=== PATIENT | male | born 1965 | race Caucasian/White ===

== ENCOUNTER 2018-06-30 17:04 | Emergency (ER) | payer BC ==
--- NOTE | 2018-06-30 17:24 | PDOC ---
Rapid Medical Evaluation Time Seen by Provider: 06/30/18 17:19 Medical Evaluation: 06/30/18 17:19 Pt c/o: glucose 475, c/o fatigue, takes pills daily, denies recent sickness/ change in medication pt on brief exam: afebrile, lcta, bp 180/100 ( on htn meds) pt ordered for: cbc, comp, acetone, ekg, ua, bgm, iv Pt to proceed to the ED 06/30/18 17:23 Discharge Disposition - Diagnosis Elevated glucose - Referrals - Patient Instructions - Post Discharge Activity
[2018-06-30 17:25] VITALS: BP 188/100; PULSE 84; TEMP 98.2; BMI 30.8
[2018-06-30 18:17] LABS: BASO % 1.2 % (0-2.0); EOS % 2.8 % (0-4.5); LYMPH % 31.5 % (8-40); MCH 30.6 pg (25.7-33.7); MCHC 36.7 g/dl (32.0-35.9); MEAN CELL VOLUME 83.4 fl (80-96); MEAN PLT VOLUME 8.7 fl (7.5-11.1); MONO % 8.1 % (3.8-10.2); NEUT % 56.4 % (42.8-82.8); PLATELET COUNT 166 K/MM3 (134-434); RBC 4.94 M/mm3 (4.00-5.60); RDW 12.8 % (11.9-15.9); WHITE BLOOD COUNT 5.2 K/mm3 (4.0-10.0)
--- NOTE | 2018-06-30 18:24 | PDOC ---
Attending Attestation - Physicial Exam PE: wnwd 52 y/o male in no acute distress head ncat neck supple oropharynx no exudates Heart RRR. No gallops, murmurs, or rubs. lungs clear to auscultation bilaterally abd soft,nontender ext +pedal edema. MAEx4 skin warm and dry,no rashes neuro A&Ox3,no gross focal neuro deficits <Kimberli Eason - Last Filed: 06/30/18 18:30> - Resident Resident Name: Gia Powell - ED Attending Attestation I have performed the following: I have examined & evaluated the patient, The case was reviewed & discussed with the resident, I agree w/resident's findings & plan, Exceptions are as noted - HPI HPI: 06/30/18 18:24 52 yo male with diabetes p/w fatigue and hyperglycemia - Medical Decision Making 07/01/18 02:16 52 yo male who is noncomplaint with his diabetes medicine came in because of hyperglycemia and fatigue labs reviewed, pt NOT in dka, acetone negative ekf is nsr with no evidence of ischemia glu decresed with IVF pt will followup w IM group at [facility] because he asked for a local physician imp poorly controlled DMII <Faith Zavala - Last Filed: 07/01/18 02:19> Attestations - Attestations Documentation prepared by Kimberli Eason, acting as medical director for Faith Zavala MD. <Kimberli Eason - Last Filed: 06/30/18 18:30>
--- NOTE | 2018-06-30 18:28 | PDOC ---
History of Present Illness - General Chief Complaint: Blood Sugar Problem Stated Complaint: Blood Sugar Problem Time Seen by Provider: 06/30/18 17:19 Past History - Past Medical History Allergies/Adverse Reactions: Allergies Allergy/AdvReac Type Severity Reaction Status Date / Time No Known Allergies Allergy Verified 06/30/18 18:34 Home Medications: Ambulatory Orders Aspirin 81 mg PO DAILY 06/30/18 Atorvastatin Ca [Lipitor] 80 mg PO HS 06/30/18 Clopidogrel Bisulfate [Plavix] 75 mg PO DAILY 06/30/18 Metformin HCl [Metformin HCl ER] 500 mg PO DAILY 06/30/18 Metoprolol Succinate [Toprol Xl] 25 mg PO DAILY 06/30/18 COPD: No Diabetes: Yes (NIDM) - Immunization History Immunization Up to Date: Yes - Suicide/Smoking/Psychosocial Hx Smoking History: Never smoked Hx Alcohol Use: No Drug/Substance Use Hx: No Substance Use Type: None *Physical Exam - Vital Signs Last Vital Signs Temp Pulse Resp BP Pulse Ox 98.2 F 84 16 188/100 H 97 06/30/18 17:20 06/30/18 17:20 06/30/18 17:20 06/30/18 17:20 06/30/18 17:20 ED Treatment Course - LABORATORY CBC & Chemistry Diagram: 06/30/18 18:00 06/30/18 18:00 Medical Decision Making - Medical Decision Making 06/30/18 18:21 Patient is a 52 year old male with past medical history of HTN, DM and CAD (s/p stents x2), presented after having a high random blood sugar taken of 400+. As per patient, usual blood sugar levels are between 200-300. Metformin BID was prescribed 3 years ago when he was diagnosed with DM, but patient was not compliant and has been taking it only day for the past year. Patient reports tiredness for the last few months, but otherwise denies headache, changes in vision, chest pain, SOB, palpitations, abdominal pain or urinary symptoms. Denies weakness, numbness or tingling. General: awake, alert, oriented, not in acute distress Head: no signs of acute trauma HEENT: PERRLA, EOMI, sclerae anicteric, no nasal discharge, moist mucous membranes Lungs: clear to auscultation bilaterally Heart: regular rate and rhythm, no m,r,g Abdomen: soft, nontender, nondistended, NABS Ext: +1 pitting edema, +2 DP pulses Fatigue DDx include but not limited to hyperglycemia, dehydration, electrolyte abnormalities CBC, CMP, Mg EKG, CXR IV NS 06/30/18 20:12 Discussed with patient lab, CXR, EKG results Repeat BGM 296 Repeat BP 191/112. Lopressor 50mg ordered. Will repeat BP after 30 mins --> dispo *DC/Admit/Observation/Transfer Diagnosis at time of Disposition: Elevated glucose - Discharge Dispostion Disposition: HOME Condition at time of disposition: Stable Decision to Admit order: No - Referrals Referrals: ON STAFF,NOT [Primary Care Provider] - [facility] [place] [facility] [place] [Provider Group] - Patient Instructions Printed Discharge Instructions: DI for Hyperglycemia -- Adult Additional Instructions: You were seen because you had elevated blood sugar. Please take your Metformin 500mg TWICE A DAY as prescribed. Follow-up with your primary care doctor within 2 days. If you do not have one, you may call the [facility] office provided in the form. Call 911 or go to the ED if with any worsening fever, chills, shortness of breath, weakness or any new concerns noted. - Post Discharge Activity
[2018-06-30] MEDS ORDERED: SODIUM CHLORIDE 1,000 ML IV STA (18:41)
[2018-06-30 18:56] LABS: ACETONE SERUM NEGATIVE (NEGATIVE)
[2018-06-30 19:09] LABS: HEMOGLOBIN 15.2 GM/dL (11.7-16.9)
[2018-06-30 19:10] LABS: HEMATOCRIT 41.6 % (35.4-49)
[2018-06-30 19:47] LABS: ALBUMIN 4.1 g/dl (3.4-5.0); ALK PHOS 122 U/L (45-117); ANION GAP 9 MMOL/L (8-16); BILIRUBIN,TOTAL 1.8 mg/dL (0.2-1); BLOOD UREA NITROGEN 23 mg/dL (7-18); CALCIUM 8.9 mg/dL (8.5-10.1); CHLORIDE 100 mmol/L (98-107); CO2 25 mmol/L (21-32); CREATININE 1.1 mg/dL (0.55-1.3); MAGNESIUM 1.9 mg/dL (1.8-2.4); SGOT/AST 18 U/L (15-37); SGPT/ALT 41 U/L (13-61); SODIUM 135 mmol/L (136-145); TOT PROT 6.9 g/dl (6.4-8.2)
[2018-06-30 19:50] LABS: GLUCOSE,RANDOM 308 mg/dL (74-106)
[2018-06-30] MEDS ORDERED: METOPROLOL TARTRATE 25 MG TABLET (FP) PO ONE (20:04)
[2018-06-30] MEDS ORDERED: METOPROLOL TARTRATE 50 MG TABLET (FP) ONE (20:13)
--- NOTE | 2018-07-01 12:33 | EKG ---
Test Reason : Blood Pressure : / mmHG Vent. Rate : 085 BPM Atrial Rate : 085 BPM P-R Int : 172 ms QRS Dur : 086 ms QT Int : 402 ms P-R-T Axes : 048 030 011 degrees QTc Int : 478 ms NORMAL SINUS RHYTHM NORMAL ECG Confirmed by MD PAVEL, MORALES ([id number]) on 07/01/2018 12:33:17 PM Referred By: Confirmed By:MORALES ZHAO MD
== END 2018-06-30 20:44 | disposition home or self-care (01) ==
LOC: JER 17:04
PROC: 3E0337Z Introduction of Electrolytic and Water Balance Substance into Peripheral Vein, Percutaneous Approach (ICD-10-PCS; principal; 2018-06-30)
DX: E11.65 Type 2 diabetes mellitus with hyperglycemia (principal); Z79.84 Long term (current) use of oral hypoglycemic drugs; I25.10 Atherosclerotic heart disease of native coronary artery without angina pectoris; I10 Essential (primary) hypertension; Z95.5 Presence of coronary angioplasty implant and graft
CPT/HCPCS: 36415; 71045-TC-FY; 80053; 82009; 82550; 82962; 83735; 84484; 85025; 93005; 93010; 99283-25; J7030